=== PATIENT | male | born 1945 | race Caucasian/White ===

== ENCOUNTER 2019-08-10 11:00 | Outpatient (CLI) | payer MEDICARE, SELFPAY ==
--- NOTE | 2019-08-10 | ECG_ITS ---
Measurements Intervals [place] Rate: 61 P: 25 NE: 184 QRS: 21 QRSD: 88 T: 28 QT: 405 QTc: 410 Interpretive Statements SINUS RHYTHM NORMAL ECG Electronically Signed On 08-10-2019 11:41:01 CDT by Reji Carlton D.O.
== END 2019-08-10 11:01 | disposition home or self-care (01) ==
PROVIDERS: PCP Family Medicine; Visit Provider Nurse Practitioner Family
DX: R42 Dizziness and giddiness (principal); R06.00 Dyspnea, unspecified
CPT/HCPCS: 93005

== ENCOUNTER 2020-06-27 09:35 | Outpatient (CLI) | payer MEDICARE, SELFPAY ==
--- NOTE | 2020-06-27 | ECG_ITS ---
Measurements Intervals [place] Rate: 57 P: 12 MO: 179 QRS: 24 QRSD: 96 T: 17 QT: 438 QTc: 430 Interpretive Statements SINUS BRADYCARDIA MINIMAL Q WAVES- INFERIOR LEADS BORDERLINE ECG Electronically Signed On 06-27-2020 11:01:32 CDT by Reji Carlton D.O.
== END 2020-06-27 09:36 | disposition home or self-care (01) ==
LOC: ANHCARD 09:38
PROVIDERS: PCP Family Medicine; Visit Provider Nurse Practitioner Family
DX: R42 Dizziness and giddiness (principal); R06.00 Dyspnea, unspecified; R00.1 Bradycardia, unspecified
CPT/HCPCS: 93005

== ENCOUNTER 2020-07-26 07:21 | Outpatient (CLI) | payer MEDICARE, SELFPAY ==
--- NOTE | 2020-07-26 | EST_ITS ---
Patient Info Name: Familia Hart Age: 75 years : 1945 Gender: Male Ht: 69 in Wt: 210 lbs BSA: 2.18 m2 Exam Date: 07/26/2020 10:09 AM Exam Location: [facility] Stress Patient Status: Outpatient Admit Date: 07/26/2020 Staff Ordering Physician: Violeta Singer NP Attending Provider: Violeta Singer NP Exercise Technologist: Stevenson Holbrook RDCS, RT Exercise Physician: Reji Carlton DO Exam Type: CA stress test treadmill Study Info A treadmill exercise stress test was performed. Summary 1. 1. Equivocal Reilly exercise stress test for ischemic ST changes by ECG criteria. 2. 2. Poor functional capacity, achieving 5 METs of workload. 3. 3. Hypertensive response to exercise. 4. 4. Rapid HR response to exercise. 5. 5. Appropriate HR recovery at 1 minute post exercise. 6. 6. Ventricular ectopies at peak exercise. 7. 7. No imaging with stress imaging. 8. 8. Patient informed of the above results. Protocol: [place] Stress ECG Details Stage: REST Duration (min): 7 min : 38 sec Speed (mph): 0.0 Grade (%): 0 HR (bpm): 64 SBP (mmHg): --- DBP (mmHg): --- METS: --- Stage: REST Duration (min): 8 min : 59 sec Speed (mph): 0.0 Grade (%): 0 HR (bpm): 62 SBP (mmHg): 135 DBP (mmHg): 77 METS: --- Stage: REST Duration (min): 21 min : 55 sec Speed (mph): 0.0 Grade (%): 0 HR (bpm): 65 SBP (mmHg): 135 DBP (mmHg): 77 METS: --- Stage: STAGE 1 Duration (min): 1 min : 0 sec Speed (mph): 1.7 Grade (%): 10 HR (bpm): 90 SBP (mmHg): 135 DBP (mmHg): 77 METS: --- Stage: STAGE 1 Duration (min): 2 min : 0 sec Speed (mph): 1.7 Grade (%): 10 HR (bpm): 107 SBP (mmHg): 135 DBP (mmHg): 77 METS: --- Stage: STAGE 1 Duration (min): 3 min : 0 sec Speed (mph): 1.7 Grade (%): 10 HR (bpm): 131 SBP (mmHg): 198 DBP (mmHg): 65 METS: --- Stage: STAGE 2 Duration (min): 0 min : 30 sec Speed (mph): 2.5 Grade (%): 12 HR (bpm): 139 SBP (mmHg): 198 DBP (mmHg): 65 METS: --- Stage: RECOVERY Duration (min): 0 min : 29 sec Speed (mph): 0.0 Grade (%): 0 HR (bpm): 124 SBP (mmHg): 198 DBP (mmHg): 65 METS: --- Stage: RECOVERY Duration (min): 1 min : 29 sec Speed (mph): 0.0 Grade (%): 0 HR (bpm): 126 SBP (mmHg): 198 DBP (mmHg): 65 METS: --- Stage: RECOVERY Duration (min): 2 min : 29 sec Speed (mph): 0.0 Grade (%): 0 HR (bpm): 101 SBP (mmHg): 198 DBP (mmHg): 65 METS: --- Stage: RECOVERY Duration (min): 3 min : 29 sec Speed (mph): 0.0 Grade (%): 0 HR (bpm): 103 SBP (mmHg): 222 DBP (mmHg): 82 METS: --- Stage: RECOVERY Duration (min): 4 min : 29 sec Speed (mph): 0.0 Grade (%): 0 HR (bpm): 99 SBP (mmHg): 197 DBP (mmHg): 81 METS: --- Stage: RECOVERY D
--- NOTE | 2020-07-26 07:38 | ECHO_ITS ---
Patient Info Name: Familia Hart Age: 75 years : 1945 Gender: Male Ht: 69 in Wt: 210 lbs BSA: 2.18 m2 HR: 75 bpm BP: 140 / 77 mmHg Heart Rhythm: Sinus Rhythm Exam Date: 07/26/2020 7:53 AM Exam Location: [facility] Patient Status: Outpatient Admit Date: 07/26/2020 Staff Ordering Physician: Violeta Singer NP Stone Driller: Catrachita Lopez RDCS Attending Provider: Violeta Singer NP Exam Type: CA echo doppler color flow Study Info Indications R42 - Dizziness and giddiness Complete two-dimensional, color flow and Doppler transthoracic echocardiogram is performed. Summary 1. Complete two-dimensional, color flow and Doppler transthoracic echocardiogram is performed. 2. Left ventricular chamber dimension is normal. 3. Left ventricular systolic function is normal, estimated at 65-70%. 4. The left ventricular diastolic function is grade II diastolic dysfunction. 5. E/e' 13 is mildly elevated. 6. Left atrial chamber dimension is mildly enlarged. 7. There is moderate aortic valve sclerosis. 8. There is trace aortic valve regurgitation. 9. There is trace mitral valve regurgitation. 10. No pulmonary hypertension, estimated pulmonary arterial systolic pressure is 30 mmHg. 11. There is trace pulmonic regurgitation. Left Ventricle E/e' 13 is mildly elevated. Left ventricular chamber dimension is normal. Left ventricular systolic function is normal, estimated at 65-70%. The left ventricular diastolic function is grade II diastolic dysfunction. Right Ventricle Right ventricular chamber dimension is normal. Right ventricular systolic function is normal. Left Atria Left atrial chamber dimension is mildly enlarged. Right Atria Right atrial chamber dimension is normal. Aortic Valve The aortic valve is trileaflet. There is moderate aortic valve sclerosis. There is no aortic valve stenosis. There is trace aortic valve regurgitation. Pulmonic Valve There is trace pulmonic regurgitation. Mitral Valve There is no mitral valve stenosis. There is trace mitral valve regurgitation. Tricuspid Valve There is no tricuspid valve regurgitation. No pulmonary hypertension, estimated pulmonary arterial systolic pressure is 30 mmHg. Pericardium/Pleural There is no pericardial effusion. Inferior Vena Cava Normal inferior vena cava with >50% collapse upon inspiration consistent with normal right atrial pressure, 5 mmHg. Aorta The aortic root size at the sinus of Valsalva is normal. Left Ventricular Outflow Tract Name Value Normal LVOT 2D LVOT Diameter 2.1 cm LVOT Doppler LVOT Peak Gradient 4 mmHg LVOT Mean Gradient 2 mmHg LVOT VTI 24 cm LVOT VTI/AV VTI Ratio 0.6 LVOT Stroke Volume 87 ml LVOT CO 4.8 l/min LVOT CI 2.2 l/min/m2 Pulmonic Valve Name Value
== END 2020-07-26 07:22 | disposition home or self-care (01) ==
PROVIDERS: PCP Family Medicine; Visit Provider Nurse Practitioner Family
DX: R42 Dizziness and giddiness (principal); R53.83 Other fatigue; I10 Essential (primary) hypertension; E78.2 Mixed hyperlipidemia; R01.1 Cardiac murmur, unspecified; I35.8 Other nonrheumatic aortic valve disorders
CPT/HCPCS: 93017; 93306

== ENCOUNTER → 2020-11-22 13:20 | Outpatient (CLI) | payer MEDICARE, SELFPAY ==
--- NOTE | ~2020-11-22 | XR_ITS ---
EXAMINATION: XR chest 2V EXAM DATE: 11/22/2020 13:38 INDICATION: R05.9 - Cough, unspecified. Cough since COVID in August 2020. Shortness of breath. TECHNIQUE: Frontal and lateral projections of the chest obtained and reviewed. There is no prior jyoti dy for comparison. FINDINGS: There is approximately 3 cm masslike density in the left upper lobe, could be primary lung cancer; recommend chest CT without or with contrast (with contrast can be helpful to differentiate hi lar adenopathy from vasculature). There is cardiomegaly. There is no pneumothorax suspected. There a re no pleural effusions. Patient has diffuse idiopathic skeletal hyperostosis (DISH). IMPRESSION: Left upper lobe masslike density; chest CT recommended. I phoned these results to 's office, left message with Leatha with this finding who stated she would pass along to Violeta Singer NP. Reviewed, dictated and finalized at location A. IMPRESSION: Left upper lobe masslike density; chest CT recommended. I phoned these results to 's office, left message with Leatha with this findin g who stated she would pass along to Violeta Singer NP.
== END ==
PROVIDERS: PCP Family Medicine; Visit Provider Nurse Practitioner Family
DX: R05.9 Cough, unspecified (principal); M48.10 Ankylosing hyperostosis [Forestier], site unspecified
CPT/HCPCS: 71046

== ENCOUNTER 2020-11-24 14:31 | Outpatient (CLI) | payer MEDICARE, SELFPAY ==
--- NOTE | ~2020-11-24 | CT_ITS ---
EXAMINATION:CT diagnostic chest w con DATE: 11/24/2020 15:11 INDICATION: Others nonspecific abnormal finding of lung field. Abnormal chest radiograph. TECHNIQUE: Computed tomography (CT) of the chest was performed without intravenous contrast. Automate d exposure control and iterative reconstruction technique were employed. The dose-length product (DLP ) was 351.40 mGy-cm. COMPARISON: Chest 2 views 11/22/2020 FINDINGS: There is mild emphysema. There is widespread peripheral septal thickening in the lungs. The re is a 4.4 x 3.0 cm mass in left lung upper lobe. There is left hilar and mediastinal lymphadenopath y. For example, a left hilar node measures 4.1 x 3.5 cm. There are old healed left rib fractures. The re are bridging endplate osteophytes at multiple levels in the spine, consistent with diffuse idiopat hic skeletal hyperostosis (DISH). There is a chronic compression fracture of T12. There is severe cer vical and upper thoracic spondylosis. IMPRESSION: 1. Mass in left lung upper lobe, consistent with primary bronchogenic carcinoma. CT-guided biopsy is recommended. 2. Left hilar and mediastinal lymphadenopathy, consistent with metastatic disease. 3. Diffuse lung disease, likely a combination of mild emphysema and mild chronic interstitial lung di sease. Reviewed, dictated and finalized at location A. IMPRESSION: 1. Mass in left lung upper lobe, consistent with primary bronchogenic carcinoma . CT-guided biopsy is recommended. 2. Left hilar and mediastinal lymphadenopathy, consistent with metastatic disea se. 3. Diffuse lung disease, likely a combination of mild emphysema and mild chroni c interstitial lung disease.
[2020-11-24 15:05] LABS: Estimated Glomerular Filt Rate > 60
== END 2020-11-24 14:32 | disposition home or self-care (01) ==
PROVIDERS: PCP Family Medicine; Visit Provider Nurse Practitioner Family
DX: R91.8 Other nonspecific abnormal finding of lung field (principal); R59.0 Localized enlarged lymph nodes; J98.4 Other disorders of lung
CPT/HCPCS: 71260; Q9967

== ENCOUNTER 2022-11-07 21:21 | Emergency (ER) | payer MEDICARE, SELFPAY ==
[2022-11-07] VITALS (15 sets, daily range): BP systolic 93–194; BP diastolic 66–99; PULSE 98–147; RESP 24–48; O2SAT 89–97
--- NOTE | ~2022-11-07 | XR_ITS ---
EXAMINATION: XR chest 1V portable INDICATION: Shortness of breath, history of lung cancer TECHNIQUE: Portable AP chest at 2228 hours COMPARISON: 11/24/2020 FINDINGS: Cardiomegaly is noted. There is a chronic masslike opacity of the left upper lobe with prob able chronic left hilar lymphadenopathy. There are patchy opacities of the left lung base. Small pleu ral effusions are suggested. No pneumothorax is identified. 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 IMPRESSION: 1. Left basilar airspace opacity, consistent with atelectasis versus pneumonia. 2. Probable left upper lobe mass and left hilar lymphadenopathy, consistent with patient's history of lung cancer. 3. Small pleural effusions. Reviewed, dictated and finalized at location F. IMPRESSION: 1. Left basilar airspace opacity, consistent with atelectasis versus pneumonia. 2. Probable left upper lobe mass and left hilar lymphadenopathy, consistent wit h patient's history of lung cancer. 3. Small pleural effusions.
--- NOTE | 2022-11-07 21:44 | ED.SOB ---
HPI - SOB/Dyspnea General Chief Complaint: Shortness of Breath/Dyspnea Stated Complaint: sob Time Seen by Provider: 11/07/22 21:40 History of Present Illness HPI Narrative: Patient is a 77-year-old male with history of AFib, stage IV lung cancer here with shortness of breath. Patient notes that he began feeling short of breath and generally unwell during the day today. In the last couple of hours prior to arrival he began having worsening shortness of breath. He denies any chest pain. Does endorse some associated chills. The majority of the patient's care including his lace roller and oncologist are at [facility]. No prior history of AL. notes that patient has had persistent afib recently, was started on amiodarone outpatient yesterday. When EMS arrived at his home, he was hypoxic into the 80s and placed on a CPAP. Related Data Home Medications Medication Instructions Recorded Confirmed budesonide 160 mcg-glycopyr 9 2 inh inhalation BID 07/16/22 07/16/22 mcg-formot 4.8 mcg/actuation HFA inhaler (Breztri [employer]) famotidine 40 mg tablet 40 mg PO DAILY 07/16/22 07/16/22 pembrolizumab 25 mg/mL intravenous 200 mg IV ONCE 07/16/22 07/16/22 solution (Keytruda) Allergies Allergy/AdvReac Type Severity Reaction Status Date / Time Sulfa (Sulfonamide Allergy Unknown sick to Verified 11/07/22 21:59 Antibiotics) stomach Review of Systems Review of Systems: ROS unobtainable: Yes unobtainable due to medical condition PMFSH Past Medical History Medical History BMI 28.0-28.9,adult Bronchogenic carcinoma of left lung COVID-19 Mediastinal lymphadenopathy Surgical History Surgical History H/O cardiac catheterization Family History Family History Father Mother Breast cancer Heart disease , Onset Age: 77 Sibling Heart disease Palliative care by specialist Other Family history of cardiovascular disease Family history of malignant neoplasm Hypertension Social History Social History Smoking status: Former smoker Tobacco type: e-cigarettes/vaping Second hand tobacco smoke exposure: Yes Alcohol intake: current Substance use: never Substance use type: does not use Living arrangements: with family Occupation/Education: occupation 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 EYES: PERRLA and EOMI. ENT: Nares clear. Mucous membranes moist. NECK: Supple. CHEST: Clear to auscultation. In respiratory distress, on EMS CPAP. HEART: Tachycardic. Normal peripheral pulses. ABDOMEN: Soft, nontender, nondistended. EXTREMITIES: Normal range of motion. No edema. SKIN: Warm, dry, no rash. NEURO: No focal deficits. Alert and oriented x3. PSYCH: Normal mood and affect. Course Course Emergency Course: Patient seen evaluated on EMS arrival. Patient was having runs of ventricular tachycardia. IV access obtained. Magnesium given to patient. Initial EKG performed and he immediately appeared to go into a persistent run of ventricular tachycardia, wide complex on the monitor, he appeared to be more diaphoretic and more tired. Given worsening of symptoms, decision was made to cardiovert patient. Fentanyl given to patient, cardioversion attempted at 100 joules without success. 2 mg of versed given, cardioversion attempted again without success. At this time it was decided to start him on amiodarone. After amiodarone bolus, patient seemed to convert from ventricular tachycardia to rate controlled atrial fibrillation. Patient tr
--- NOTE | 2022-11-07 21:51 | PC.NURSE ---
2127 2mg Magnesium 2132 100 mcg fentanyl 2133 100 Mynor synchronized cardioversion performed - pt still in vtach 2134 2mg Versed 2135 200 Mynor synchronized cardioversion performed 2136 150mg Amiodarone 2139 1mg/min Amiodarone drip
[2022-11-07 21:53] LABS: Basophils Absolute Auto 0.1 K/mm3 (0.0-0.1); Basophils Percent Auto 0.4 % (0.2-1.2); Eosinophils Absolute Auto 0.3 K/mm3 (0-0.3); Hematocrit 48.2 % (42.0-52.0); Hemoglobin 15.5 g/dL (14.0-18.0); Immature Granulocyte Absolute 0.13 K/mm3 (0.00-0.031); Immature Granulocyte Percent A 0.9 % (0-0.5); Lymphocytes Absolute Auto 5.17 K/mm3 (0.9-3.2); Lymphocytes Percent Auto 37.6 % (18.3-44.2); Mean Corpuscular HGB Conc 32.2 g/dl (32-36); Mean Corpuscular Hemoglobin 30.9 pg (26-34); Mean Corpuscular Volume 96.2 fl (80-100); Mean Platelet Volume 10.6 fl (7.4-10.4); Monocytes Absolute Auto 0.8 K/mm3 (0.1-0.6); Monocytes Percent Auto 5.5 % (2.6-8.5); Neutrophils Absolute Auto 7.4 K/mm3 (1.3-6.7); Neutrophils Percent Auto 53.6 % (45.5-73.1); Platelet Count Result 259 k/mm3 (150-375); Red Blood Count 5.01 M/mm3 (4.6-6.20); Red Cell Distribution Width 13.2 % (11.5-14.5); White Blood Count 13.8 K/mm3 (4.5-10.0)
[2022-11-07 22:03] LABS: INR 1.2; Prothrombin Time 15.6 Seconds (11.1-14.7)
[2022-11-07 22:04] LABS: Partial Thromboplastin Time 34.8 SECONDS (22.3-36.8)
[2022-11-07 22:05] LABS: Albumin Level 4.4 g/dL (3.5-5.1); Alkaline Phosphatase 99 U/L (38-126); Anion Gap 24 mmol/L (8-16); Aspartate Amino Transferase 69 U/L (17-59); Bilirubin,Total 0.9 mg/dL (0.2-1.3); Blood Urea Nitrogen 14 mg/dL (9-20); Calcium 8.8 mg/dL (8.4-10.2); Carbon Dioxide 11 mmol/L (22-30); Chloride 99 mmol/L (98-107); Estimated Glomerular Filt Rate 54; Glucose 349 mg/dL (65-110); Lipase 209 U/L (23-300); Magnesium 2.4 mg/dL (1.6-2.3); Potassium 4.2 mmol/L (3.4-5.0); Sodium 134 mmol/L (137-145)
[2022-11-07 22:14] LABS: Alanine Aminotransferase 53 U/L (6-50)
--- NOTE | 2022-11-07 22:15 | ECG_ITS ---
Measurements Intervals [place] Rate: 100 P: -68 RI: 122 QRS: -87 QRSD: 144 T: 64 QT: 418 QTc: 541 Interpretive Statements SINUS OR ECTOPIC ATRIAL TACHYCARDIA ATRIAL PREMATURE COMPLEX RIGHT BUNDLE BRANCH BLOCK CONSIDER ANTERIOR INFARCT, AGE INDETERMINATE INFERIOR INFARCT, AGE INDETERMINATE BASELINE ARTIFACT- I, II, III, AVR, AVL, AVF ABNORMAL ECG COMPARED TO ECG 11/07/2022 21:43:06 SINUS OR ECTOPIC ATRIAL TACHYCARDIA NOW PRESENT Electronically Signed On 11-08-2022 6:31:31 CDT by Reji Carlton D.O.
--- NOTE | 2022-11-07 22:15 | ECG_ITS ---
Measurements Intervals [place] Rate: 62 P: [place]: 0 QRS: -86 QRSD: 148 T: 85 QT: 552 QTc: 564 Interpretive Statements SINUS RHYTHM ATRIAL PREMATURE COMPLEXES LEFT AXIS DEVIATION RIGHT BUNDLE BRANCH BLOCK INFERIOR INFARCT, AGE INDETERMINATE BASELINE WANDER- II, III, AVR, AVL, AVF, V1-V6 ABNORMAL ECG COMPARED TO ECG 06/27/2020 10:52:08 SINUS RHYTHM NOW PRESENT RIGHT BUNDLE-BRANCH BLOCK NOW PRESENT MYOCARDIAL INFARCT FINDING NOW PRESENT Electronically Signed On 11-08-2022 6:26:30 CDT by Reji Carlton D.O.
[2022-11-07 22:20] LABS: NT Pro B Type Natriuretic Pept 2060 pg/mL (19.9-100)
--- NOTE | 2022-11-07 22:35 | ECG_ITS ---
Measurements Intervals [place] Rate: 102 P: -66 [place]: 119 QRS: -90 QRSD: 154 T: 72 QT: 452 QTc: 590 Interpretive Statements SINUS OR ECTOPIC ATRIAL TACHYCARDIA LEFT AXIS DEVIATION RIGHT BUNDLE BRANCH BLOCK CONSIDER ANTERIOR INFARCT, AGE INDETERMINATE INFERIOR INFARCT, AGE INDETERMINATE ABNORMAL ECG COMPARISON TO PRIOR ECG 11-07-22 23:11:41 NO SIGNIFICANT CHANGES Electronically Signed On 11-08-2022 6:34:08 CDT by Reji Carlton D.O.
[2022-11-07] MEDS: ASPIRIN 81 MG CHEWABLE TABLET 324 MG PO (23:25)
[2022-11-08] MEDS: DOXYCYCLINE 100 MG/NS 100 ML 100 MG/100 ML BAG IVPB (00:03)
[2022-11-08 00:05] VITALS: BP 133/85; PULSE 98; O2SAT 97
[2022-11-08 00:13] LABS: Influenza A QL RT-PCR Negative (Negative); Influenza B QL RT-PCR Negative (Negative); RSV RNA, RT-PCR Negative (Negative); SARS-CoV-2 RNA PCR Negative (Negative)
[2022-11-08 00:26] VITALS: PULSE 101; RESP 29; O2SAT 99
[2022-11-08 00:30] VITALS: BP 125/82; PULSE 99; RESP 26; O2SAT 97
[2022-11-08 00:31] VITALS: PULSE 98; RESP 28; O2SAT 99
== END 2022-11-08 01:06 | disposition short-term general hospital (02) ==
PROVIDERS: Student in an Organized Health Care Education/Training Program; Emergency Provider Emergency Medicine; PCP Family Medicine
DX: J18.9 Pneumonia, unspecified organism (principal); I47.20 Ventricular tachycardia, unspecified; R09.02 Hypoxemia; I48.91 Unspecified atrial fibrillation; C34.92 Malignant neoplasm of unspecified part of left bronchus or lung; Z86.16 Personal history of COVID-19; Z87.891 Personal history of nicotine dependence; Z79.01 Long term (current) use of anticoagulants; I45.10 Unspecified right bundle-branch block; R94.31 Abnormal electrocardiogram [ECG] [EKG]; I49.1 Atrial premature depolarization
CPT/HCPCS: 36415; 71045; 80053; 83690; 83735; 83880; 84484; 85025; 85610; 85730; 87637; 93005; 96365; 96367; 99285; A9270; J0282; J0696; J2250; J3010; J3475; J7030